=== PATIENT | female | born 1990 | race African-American/Black ===

== ENCOUNTER 2022-09-05 22:28 | Emergency (ER) | payer OTHER ==
[~2022-09-05] VITALS: Ht 152.4 cm; Wt 49.9 kg
== END 2022-09-06 04:20 | disposition home or self-care (01) ==
LOC: ER 22:28
DX: O20.0 Threatened abortion (principal)

== ENCOUNTER 2022-09-11 12:11 | Emergency (ER) | payer OTHER ==
[~2022-09-11] VITALS: Ht 154.9 cm; Wt 49.9 kg
== END 2022-09-11 15:20 | disposition home or self-care (01) ==
LOC: ER 12:11
DX: O20.0 Threatened abortion (principal); Z3A.01 Less than 8 weeks gestation of pregnancy; Z88.2 Allergy status to sulfonamides

== ENCOUNTER 2023-05-01 23:45 | Emergency (ER) | payer OTHER ==
[~2023-05-01] VITALS: Ht 160 cm; Wt 51.7 kg
== END 2023-05-02 04:51 | disposition home or self-care (01) ==
LOC: ER 23:45
DX: O20.0 Threatened abortion (principal)

== ENCOUNTER 2023-06-15 16:46 | Emergency (ER) | payer OTHER ==
[~2023-06-15] VITALS: Ht 152.4 cm; Wt 50.8 kg
[2023-06-15] MEDS ORDERED: PRENATAL + DHA1 EAC1 (17:37)
== END 2023-06-15 20:14 | disposition home or self-care (01) ==
LOC: ER 16:46
PROVIDERS: Emergency Medicine
DX: R10.2 Pelvic and perineal pain (principal); Z33.1 Pregnant state, incidental; Z3A.14 14 weeks gestation of pregnancy; Z88.2 Allergy status to sulfonamides

== ENCOUNTER 2024-08-13 12:03 | Emergency (ER) | payer OTHER ==
[~2024-08-13] VITALS: Ht 152.4 cm; Wt 61.7 kg
[~2024-08-13 12:03] MED LIST: PRENATAL + DHA1 EAC1
[2024-08-13] MEDS ORDERED: KETOROLAC TROMETHAMINE 30 MG VIAL IM ONE (13:00)
[2024-08-13 14:39] LABS: HEMATOCRIT 36.8 % (36.0-45.00); HEMOGLOBIN 12.2 g/dL (12.0-15.00); MEAN CELL VOLUME 80.2 fL (80.00-100.00); MEAN CORPUSCULAR HEMOGLOBIN 26.5 pg (27.00-32.0); PLATELET COUNT 201 K/uL (150-450); RED BLOOD COUNT 4.59 M/uL (4.00-6.00); RED CELL DISTRIBUTION WIDTH 14.3 % (11.5-14.5)
[2024-08-13 14:40] LABS: URINE APPEARANCE Clear; URINE BILIRRUBIN Negative (NEGATIVE); URINE BLOOD Negative; URINE COLOR Yellow; URINE GLUCOSE Negative (NEGATIVE); URINE KETONE Trace (NEGATIVE); URINE LEUKOCYTE Trace; URINE NITRATE Negative; URINE PROTEIN Negative (NEGATIVE)
[2024-08-13 14:44] LABS: URINE BACTERIA 1165.4 uL (0.0-1933); URINE EPITHELIAL CELLS 41.8 uL (0.0-38.8); URINE RBC 4.5 uL (0.0-20.8); URINE WBC 13.4 uL (0.0-23.2)
[2024-08-13 14:47] LABS: URINE CAST 0.15 uL (0.0-1.40)
[2024-08-13] MEDS ORDERED: KETO10TA2 PO (15:24)
== END 2024-08-13 15:52 | disposition home or self-care (01) ==
LOC: ER 12:05
PROVIDERS: General Practice
DX: R10.2 Pelvic and perineal pain (principal); Z88.2 Allergy status to sulfonamides; N83.291 Other ovarian cyst, right side
CPT/HCPCS: 36415; 76830; 96372; 99284; J1885